=== PATIENT | male | born 1990 | race Caucasian/White ===

== ENCOUNTER 2018-09-10 13:39 | Emergency (ER) | payer OTHER ==
[~2018-09-10] VITALS: Ht 157.5 cm; Wt 61.3 kg
[2018-09-10 13:52] VITALS: Ht 157.5 cm; Wt 61.3 kg
[2018-09-10 16:09] VITALS: BP 131/83
== END 2018-09-10 16:10 | disposition home or self-care (01) ==
LOC: ED 13:39
DX: S61.412A Laceration without foreign body of left hand, initial encounter (principal); S61.411A Laceration without foreign body of right hand, initial encounter; G40.909 Epilepsy, unspecified, not intractable, without status epilepticus; W54.0XXA Bitten by dog, initial encounter; Y93.89 Activity, other specified; Y92.89 Other specified places as the place of occurrence of the external cause; Y99.8 Other external cause status
CPT/HCPCS: 90715; J1885; J2001

== ENCOUNTER 2018-11-29 15:28 | Emergency (ER) | payer OTHER ==
[~2018-11-29] VITALS: Ht 165.1 cm; Wt 60.8 kg
[2018-11-29 15:53] VITALS: Ht 165.1 cm; Wt 60.8 kg
[2018-11-29 17:34] VITALS: BP 118/68
== END 2018-11-29 17:34 | disposition home or self-care (01) ==
LOC: ED 15:28
DX: T15.02XA Foreign body in cornea, left eye, initial encounter (principal); X58.XXXA Exposure to other specified factors, initial encounter; Y93.89 Activity, other specified; Y92.89 Other specified places as the place of occurrence of the external cause; Y99.8 Other external cause status